=== PATIENT | male | born 1955 | race Caucasian/White ===

== ENCOUNTER 2019-11-30 17:48 | Emergency (ER) ==
[2019-11-30] MEDS ORDERED: Morphine 4 MG/ML VIAL ONE (19:13)
[2019-11-30] MEDS ORDERED: Dexamethasone 10 MG/ML VIAL ONE (19:13)
--- NOTE | 2019-11-30 19:40 | CT ---
CT LUMBAR SPINE WITHOUT CONTRAST: INDICATIONS: Severe back pain COMPARISON: None. TECHNIQUE: Multiple CT images were obtained of the lumbar spine without contrast. Axial, coronal, and sagittal r eformatted images were constructed from the raw data. FINDINGS: Visualized retroperitoneal and paravertebral soft tissues: There are severe vascular calcifications s een involving the visualized vasculature. There is an infrarenal abdominal aortic aneurysm measuring 3.7 cm. No pathologically enlarged lymph nodes are evident. Spinal alignment: There are bilateral pars defects at L5 with grade 1 anterolisthesis. Spinal instrumentation or postsurgical change: None At L5-S1, there is vacuum disc phenomenon within the L5-S1 with grade 1 anterolisthesis related to bi lateral pars defects. There is an acute superior endplate central compression deformity of L5 with approximately 15% loss of height. The disc degenerative disease in addition to the anterolisthesis in duces severe bilateral neural foraminal narrowing.. At L4-5, there is a broad-based bulge with facet hypertrophy inducing mild bilateral neural foraminal narrowing. At L3-4, there is mild broad-based bulge inducing mild bilateral neural foraminal narrowing. There is remote appearing inferior endplate compression fracture of L3. At L2-3, there is a mild broad-based bulge inducing mild bilateral neural foraminal narrowing. There is a acute appearing superior central endplate compression deformity involving L2 with approximately 50% loss of height. At L1-L2, there is a broad-based disc bulge inducing mild bilateral neural foraminal narrowing. At T12-L1, there is no appreciable central canal or neuroforaminal narrowing. IMPRESSION: 1. Acute-appearing endplate compression deformities of L5 and L2. Chronic inferior endplate central compression deformity of L3. 2. Severe lumbar spondylosis with multilevel neural foraminal narrowing. This is most pronounced at L 5-S1 where there is grade 1 anterolisthesis related to bilateral pars defects and advanced disc degenerative disease inducing severe bilateral neural foraminal narrowing. 3. Infrarenal abdominal aortic aneurysm measuring 3.7 cm.
== END 2019-11-30 20:42 | disposition home or self-care (01) ==
LOC: ERS 17:48
DX: S32.059A Unspecified fracture of fifth lumbar vertebra, initial encounter for closed fracture (principal); S32.029A Unspecified fracture of second lumbar vertebra, initial encounter for closed fracture; S32.039A Unspecified fracture of third lumbar vertebra, initial encounter for closed fracture; J43.9 Emphysema, unspecified; G62.9 Polyneuropathy, unspecified; F17.210 Nicotine dependence, cigarettes, uncomplicated; Z79.899 Other long term (current) drug therapy; Z79.891 Long term (current) use of opiate analgesic; W19.XXXA Unspecified fall, initial encounter
CPT/HCPCS: 72131; 96372; J1100; J2270

== ENCOUNTER 2020-11-04 20:13 | Inpatient (IN) | payer OTHER ==
[2020-11-04] MEDS ORDERED: Morphine 4 MG/ML VIAL ONE (21:31)
[2020-11-04 22:41] LABS: CKMB 22.3 ng/mL (0-6.6)
[2020-11-04] MEDS ORDERED: Acetaminophen 325 MG TAB PO PRN (23:24)
[2020-11-04] MEDS ORDERED: Ondansetron PF 4 MG/2 ML Vial IVP PRN (23:24)
[2020-11-04] MEDS ORDERED: hydrALAZINE 20 MG/ML VIAL SLOW IVP PRN (23:27)
[2020-11-04] MEDS ORDERED: Nitroglycerin 2% Ointment 1 INCH/1 GM Packet TOP SCH (23:45)
[2020-11-04] MEDS ORDERED: Pantoprazole 40 MG VIAL IVP SCH (23:45)
[2020-11-04] MEDS ORDERED: Sodium Chloride 0.9% (PF) 10 ML VIAL FS PRN (23:45)
[2020-11-05] MEDS: Morphine 2 MG/ML VIAL SLOW IVP PRN ×3 (00:51→07:36)
[2020-11-05 00:57] VITALS: BMI 29.2
[2020-11-05 04:01] LABS: #Eosinphils 0.1 thou/uL (0.0-0.7); #Lymphocytes 1.8 thou/uL (1.20-3.40); #Neutrophils 7.4 thou/uL (1.40-6.50); %Basophils 0.5 % (0.0-1.0); %Eosinophils 1.3 % (0.0-10.0); %Lymphocytes 17.4 % (21.0-51.0); %Monocytes 9.5 % (0.0-10.0); %Neutrophils 71.5 % (42.0-75.0); Hemoglobin 12.8 g/dL (14.0-18.0); Mean Corpuscular HGB CONC 33.5 g/dL (32.0-36.0); Mean Corpuscular Hemoglobin 32.1 pg (27.0-31.0); Mean Corpuscular Volume 95.6 fL (78.0-98.0); Mean Platelet Volume 8.2 fL (7.4-10.4); Platelet Count 164 thou/uL (130-400); RBC Distribution Width 13.2 % (11.5-14.5); White Blood Cell (WBC) Count 10.3 thou/uL (4.8-10.8)
[2020-11-05 04:22] LABS: Anion Gap 11 mmol/L (10-20); BUN (Urea Nitrogen) 12 mg/dL (8.4-25.7); Calc. Creatinine Clearance 140 mL/min (70-130); Calcium 8.9 mg/dL (7.8-10.44); Carbon Dioxide 23 mmol/L (23-31); Chloride 104 mmol/L (98-107); Glucose 102 mg/dL (80-115); Potassium 3.8 mmol/L (3.5-5.1); Sodium 134 mmol/L (136-145)
[2020-11-05 04:31] LABS: Troponin I 11.125 ng/mL (< 0.028)
[2020-11-05 04:42] LABS: SARS-CoV-2 NAA Rapid Test Not Detected (NotDetected)
[2020-11-05] MEDS: Nitroglycerin 2% Ointment 1 INCH/1 GM Packet TOP SCH ×3 (07:07→21:37)
[2020-11-05] MEDS ORDERED: Heparin 10,000 UNITS/ 10 ML VIAL ONE (07:41)
[2020-11-05] MEDS ORDERED: Nitroglycerin 100MG/250ML BOT 250 ML ONE (07:41)
[2020-11-05] MEDS ORDERED: Verapamil 5 MG/2 ML VIAL ONE (07:41)
[2020-11-05] MEDS ORDERED: Lidocaine 1% (PF) 30 ML VIAL ONE (07:42)
[2020-11-05] MEDS ORDERED: Atropine Sulfate 1 mg/10 ml Syringe ONE (08:28)
[2020-11-05 08:37] LABS: CKMB 53.4 ng/mL (0-6.6)
[2020-11-05] MEDS ORDERED: Clopidogrel Bisulfate 300 MG TAB ONE (08:40)
[2020-11-05] MEDS ORDERED: Midazolam HCl 2 mg/2 ml Vial ONE (08:52)
[2020-11-05] MEDS ORDERED: Fentanyl 100 MCG/2 ML VIAL ONE (08:52)
[2020-11-05] MEDS ORDERED: Clopidogrel Bisulfate 75 MG TAB PO SCH (09:00)
[2020-11-05] MEDS ORDERED: Enoxaparin Sodium 100 MG/ML SYRINGE SC SCH (09:00)
[2020-11-05] MEDS ORDERED: Iopamidol 370 76% 100 ML VIAL ONE (09:02)
[2020-11-05] MEDS ORDERED: Iopamidol 370 76% 50 ML VIAL FS ONE (09:02)
[2020-11-05] MEDS ORDERED: Ondansetron PF 4 MG/2 ML Vial ONE (09:47)
[2020-11-05] MEDS ORDERED: diphenhydrAMINE 50 MG/ML VIAL IVP PRN (14:34)
[2020-11-05] MEDS ORDERED: Montelukast Sodium 10 mg Tablet PO PRN (14:35)
[2020-11-05] MEDS ORDERED: Aspirin Chewable 81 MG TAB PO SCH ×3 (15:00→21:00)
[2020-11-05] MEDS: HYDROcodone/Acetaminophen 5/325 mg Tablet PO SCH ×2 (15:52→21:36)
[2020-11-05] MEDS: Mometasone 100 MCG/PUFF (1 INHALER) INH SCH (18:39)
[2020-11-05] MEDS ORDERED: Pantoprazole 40 MG VIAL IVP SCH (21:00)
[2020-11-05] MEDS: Atorvastatin Calcium 40 MG TAB PO SCH (21:35)
[2020-11-05] MEDS: Sucralfate 1 GM TAB PO SCH (21:38)
[2020-11-05] MEDS ORDERED: Aspirin 325 MG TAB PO SCH (23:59)
[2020-11-06 04:06] LABS: #Eosinphils 0.1 thou/uL (0.0-0.7); #Lymphocytes 2.3 thou/uL (1.20-3.40); #Neutrophils 4.2 thou/uL (1.40-6.50); %Basophils 0.3 % (0.0-1.0); %Eosinophils 1.6 % (0.0-10.0); %Lymphocytes 29.7 % (21.0-51.0); %Monocytes 12.9 % (0.0-10.0); %Neutrophils 55.5 % (42.0-75.0); Hemoglobin 12.2 g/dL (14.0-18.0); Mean Corpuscular HGB CONC 33.9 g/dL (32.0-36.0); Mean Corpuscular Hemoglobin 32.8 pg (27.0-31.0); Mean Corpuscular Volume 96.8 fL (78.0-98.0); Mean Platelet Volume 8.1 fL (7.4-10.4); Platelet Count 164 thou/uL (130-400); Red Blood Cell (RBC) Count 3.73 mill/uL (4.70-6.10); White Blood Cell (WBC) Count 7.6 thou/uL (4.8-10.8)
[2020-11-06 04:45] LABS: ALT (SGPT) 23 U/L (8-55); AST (SGOT) 86 U/L (5-34); Albumin 3.7 g/dL (3.4-4.8); Alkaline Phosphatase 59 U/L (40-110); Anion Gap 12 mmol/L (10-20); BUN (Urea Nitrogen) 10 mg/dL (8.4-25.7); Calc. Creatinine Clearance 121 mL/min (70-130); Carbon Dioxide 27 mmol/L (23-31); Cardiac Risk 5.8 (Less than 4.5); Chloride 103 mmol/L (98-107); Cholesterol 193 mg/dl (< 200 Desired); Globulin 2.7 g/dL (2.4-3.5); Glucose 91 mg/dL (80-115); HDL Cholesterol 33 mg/dL (>60 Neg Risk); LDL Cholesterol, Calculated 128 mg/dL; Potassium 4.5 mmol/L (3.5-5.1); Protein, Total 6.4 g/dL (5.8-8.1); Sodium 137 mmol/L (136-145); Triglycerides 161 mg/dL (Less than 150)
[2020-11-06] MEDS: Nitroglycerin 2% Ointment 1 INCH/1 GM Packet TOP SCH ×2 (06:45→14:32)
[2020-11-06] MEDS: Mometasone 100 MCG/PUFF (1 INHALER) INH SCH ×2 (07:44→19:05)
[2020-11-06] MEDS: Aspirin 81 mg Enteric Coated Tablet PO SCH (08:53)
[2020-11-06] MEDS: Sucralfate 1 GM TAB PO SCH ×2 (08:53→21:23)
[2020-11-06] MEDS: Clopidogrel Bisulfate 75 MG TAB PO SCH (08:54)
[2020-11-06] MEDS: HYDROcodone/Acetaminophen 5/325 mg Tablet PO SCH ×2 (08:54→11:38)
[2020-11-06] MEDS: Carvedilol 6.25 MG TAB PO SCH (21:23)
[2020-11-06] MEDS: Atorvastatin Calcium 40 MG TAB PO SCH (21:24)
[2020-11-06] MEDS: HYDROcodone/Acetaminophen 5/325 mg Tablet PO PRN (23:11)
[2020-11-07 04:40] LABS: #Eosinphils 0.2 thou/uL (0.0-0.7); #Neutrophils 5.5 thou/uL (1.40-6.50); %Basophils 0.4 % (0.0-1.0); %Eosinophils 2.5 % (0.0-10.0); %Lymphocytes 23.3 % (21.0-51.0); %Monocytes 10.9 % (0.0-10.0); %Neutrophils 62.8 % (42.0-75.0); Hemoglobin 13.3 g/dL (14.0-18.0); Mean Corpuscular HGB CONC 34.6 g/dL (32.0-36.0); Mean Corpuscular Hemoglobin 33.3 pg (27.0-31.0); Mean Corpuscular Volume 96.2 fL (78.0-98.0); Mean Platelet Volume 8.5 fL (7.4-10.4); Platelet Count 171 thou/uL (130-400); RBC Distribution Width 12.9 % (11.5-14.5); Red Blood Cell (RBC) Count 3.99 mill/uL (4.70-6.10); White Blood Cell (WBC) Count 8.8 thou/uL (4.8-10.8)
[2020-11-07 05:14] LABS: Anion Gap 12 mmol/L (10-20); BUN (Urea Nitrogen) 10 mg/dL (8.4-25.7); Calc. Creatinine Clearance 122 mL/min (70-130); Calcium 9.5 mg/dL (7.8-10.44); Carbon Dioxide 27 mmol/L (23-31); Chloride 102 mmol/L (98-107); Glucose 102 mg/dL (80-115); Potassium 4.3 mmol/L (3.5-5.1); Sodium 137 mmol/L (136-145)
[2020-11-07] MEDS: Mometasone 100 MCG/PUFF (1 INHALER) INH SCH ×2 (07:13→18:46)
[2020-11-07] MEDS: Clopidogrel Bisulfate 75 MG TAB PO SCH (09:03)
[2020-11-07] MEDS: Carvedilol 6.25 MG TAB PO SCH ×2 (09:04→20:37)
[2020-11-07] MEDS: Sucralfate 1 GM TAB PO SCH ×2 (09:04→20:37)
[2020-11-07] MEDS: Aspirin 81 mg Enteric Coated Tablet PO SCH (09:05)
[2020-11-07] MEDS: HYDROcodone/Acetaminophen 5/325 mg Tablet PO PRN ×3 (09:09→22:09)
[2020-11-07] MEDS: Atorvastatin Calcium 40 MG TAB PO SCH (20:37)
[2020-11-08] MEDS: Carvedilol 6.25 MG TAB PO SCH (09:10)
[2020-11-08] MEDS: Aspirin 81 mg Enteric Coated Tablet PO SCH (09:10)
[2020-11-08] MEDS: Sucralfate 1 GM TAB PO SCH (09:10)
[2020-11-08] MEDS: Clopidogrel Bisulfate 75 MG TAB PO SCH (09:10)
[2020-11-08] MEDS: HYDROcodone/Acetaminophen 5/325 mg Tablet PO PRN (09:13)
[2020-11-08] MEDS: Mometasone 100 MCG/PUFF (1 INHALER) INH SCH (09:42)
[2020-11-08 13:14] VITALS: BP 117/76; TEMP 97.8
== END 2020-11-08 13:00 | disposition home or self-care (01) | DRG 249 ==
LOC: ERS 20:13 → 2NO 22:40 → CCU 11-05 10:20 → 2NO 11-06 18:21
PROVIDERS: ADMIT Hospitalist; ATTEND Internal Medicine
PROC: 02703FZ Dilation of Coronary Artery, One Artery with Three Intraluminal Devices, Percutaneous Approach (ICD-10-PCS; principal; 2020-11-05)
PROC: B2111ZZ Fluoroscopy of Multiple Coronary Arteries using Low Osmolar Contrast (ICD-10-PCS; 2020-11-05)
DX: I21.19 ST elevation (STEMI) myocardial infarction involving other coronary artery of inferior wall (principal); I50.32 Chronic diastolic (congestive) heart failure; I13.0 Hypertensive heart and chronic kidney disease with heart failure and stage 1 through stage 4 chronic kidney disease, or unspecified chronic kidney disease; E87.1 Hypo-osmolality and hyponatremia; Z20.822 Contact with and (suspected) exposure to COVID-19; F17.210 Nicotine dependence, cigarettes, uncomplicated; I25.10 Atherosclerotic heart disease of native coronary artery without angina pectoris; M54.5 Low back pain; E78.5 Hyperlipidemia, unspecified; N18.30 Chronic kidney disease, stage 3 unspecified; D53.9 Nutritional anemia, unspecified; I08.1 Rheumatic disorders of both mitral and tricuspid valves; J43.9 Emphysema, unspecified; G62.9 Polyneuropathy, unspecified; K21.9 Gastro-esophageal reflux disease without esophagitis; G89.29 Other chronic pain; Z88.5 Allergy status to narcotic agent; Z88.0 Allergy status to penicillin; Z79.899 Other long term (current) drug therapy
CPT/HCPCS: 36415; 76942; 80048; 80053; 80061; 82553; 84443; 84484; 85025; 85347; 86850; 86900; 86901; 92928; 93005; 93010; 93306; 93454; 93798; 94640; 94760; 96374; 97139; 99152; 99153; C1769; C1876; C9113; J0461; J1644; J2001; J2250; J2270; J2405; J3010; J7620; Q9967; U0002; U0005

== ENCOUNTER 2020-12-09 12:42 | Observation (INO) | payer OTHER ==
[~2020-12-09 12:42] MED LIST: Iopamidol-370 76% 500 ML 1 ML ONE
[2020-12-09] MEDS ORDERED: Morphine 4 MG/ML VIAL ONE ×3 (12:58→15:42)
[2020-12-09] MEDS ORDERED: Ondansetron PF 4 MG/2 ML Vial ONE (12:58)
[2020-12-09 13:09] LABS: #Eosinphils 0.3 thou/uL (0.0-0.7); #Lymphocytes 1.8 thou/uL (1.20-3.40); #Monocytes 0.4 thou/uL (0.11-0.59); #Neutrophils 3.7 thou/uL (1.40-6.50); %Basophils 0.2 % (0.0-1.0); %Eosinophils 5.2 % (0.0-10.0); %Lymphocytes 27.9 % (21.0-51.0); %Monocytes 6.9 % (0.0-10.0); %Neutrophils 59.7 % (42.0-75.0); Hemoglobin 13.3 g/dL (14.0-18.0); Mean Corpuscular HGB CONC 35.3 g/dL (32.0-36.0); Mean Corpuscular Hemoglobin 34.3 pg (27.0-31.0); Mean Corpuscular Volume 97.2 fL (78.0-98.0); Mean Platelet Volume 7.8 fL (7.4-10.4); Platelet Count 175 thou/uL (130-400); RBC Distribution Width 13.4 % (11.5-14.5); Red Blood Cell (RBC) Count 3.87 mill/uL (4.70-6.10); White Blood Cell (WBC) Count 6.3 thou/uL (4.8-10.8)
[2020-12-09 13:31] LABS: ALT (SGPT) 27 U/L (8-55); AST (SGOT) 45 U/L (5-34); Albumin 4.4 g/dL (3.4-4.8); Alkaline Phosphatase 64 U/L (40-110); Anion Gap 14 mmol/L (10-20); BUN (Urea Nitrogen) 10 mg/dL (8.4-25.7); Bilirubin, Total 0.7 mg/dL (0.2-1.2); Calc. Creatinine Clearance 0 mL/min (70-130); Calcium 9.2 mg/dL (7.8-10.44); Carbon Dioxide 18 mmol/L (23-31); Chloride 105 mmol/L (98-107); Globulin 2.6 g/dL (2.4-3.5); Glucose 144 mg/dL (80-115); Potassium 4.2 mmol/L (3.5-5.1); Sodium 133 mmol/L (136-145)
[2020-12-09] MEDS ORDERED: Ondansetron PF 4 MG/2 ML Vial IVP PRN (14:09)
[2020-12-09] MEDS ORDERED: Ondansetron ODT 4 MG TAB PO PRN (14:09)
[2020-12-09] MEDS ORDERED: Dextrose 50% Abboject 50 ML SYRINGE SLOW IVP PRN (14:09)
[2020-12-09] MEDS ORDERED: Dextrose 5% in Water 1,000 ML IV PRN (14:09)
[2020-12-09] MEDS ORDERED: hydrALAZINE 20 MG/ML VIAL SLOW IVP PRN (14:09)
[2020-12-09] MEDS ORDERED: Rib Fracture Protocol PO SCH (14:15)
[2020-12-09] MEDS ORDERED: Cyclobenzaprine 10 MG TAB PO PRN (14:24)
[2020-12-09] MEDS ORDERED: HYDROcodone/Acetaminophen 10/325 mg Tablet ONE (14:30)
[2020-12-09] MEDS ORDERED: Gabapentin 300 MG CAP PO SCH (15:00)
[2020-12-09] MEDS ORDERED: Ketorolac Tromethamine 30 MG/ML VIAL ONE (15:42)
[2020-12-09] MEDS ORDERED: Ibuprofen 200 MG TAB PO PRN (16:00)
[2020-12-09 16:49] VITALS: BMI 29.5
[2020-12-09] MEDS: traMADol HCl 50 MG TAB PO SCH ×2 (17:50→18:42)
[2020-12-09] MEDS: Acetaminophen 500 MG TAB PO SCH ×3 (17:50→22:58)
[2020-12-09] MEDS ORDERED: Ibuprofen 800 MG TAB PO SCH (18:00)
[2020-12-09] MEDS ORDERED: Albuterol 200 PUFF (6.7GM INHALER) INH PRN (20:29)
[2020-12-09] MEDS ORDERED: Atorvastatin Calcium 40 MG TAB PO SCH (21:00)
[2020-12-09] MEDS ORDERED: Famotidine 20 MG TAB PO SCH (21:00)
[2020-12-09] MEDS: Senokot S 8.6-50 MG TAB PO SCH (21:49)
[2020-12-09] MEDS: Carvedilol 3.125 MG TAB PO SCH (21:49)
[2020-12-09] MEDS: Sucralfate 1 GM TAB PO SCH (21:49)
[2020-12-10] MEDS: traMADol HCl 50 MG TAB PO SCH ×3 (00:13→07:08)
[2020-12-10] MEDS ORDERED: Mometasone 100 MCG/PUFF (1 INHALER) INH SCH (06:30)
[2020-12-10] MEDS: Acetaminophen 500 MG TAB PO SCH ×2 (06:42→07:10)
[2020-12-10 07:42] LABS: SARS-CoV-2 PCR by NAA Not Detected (NotDetected)
[2020-12-10 08:23] VITALS: BP 147/94; TEMP 98
[2020-12-10] MEDS ORDERED: Aspirin 81 mg Enteric Coated Tablet PO SCH (09:00)
[2020-12-10] MEDS ORDERED: Docusate 100 MG CAP PO SCH (09:00)
[2020-12-10] MEDS ORDERED: Polyethylene Glycol 3350 17 GM Packet PO SCH (09:00)
[2020-12-10] MEDS ORDERED: Clopidogrel Bisulfate 75 MG TAB PO SCH (09:00)
[2020-12-10] MEDS: Senokot S 8.6-50 MG TAB PO SCH (09:25)
[2020-12-10] MEDS: Carvedilol 3.125 MG TAB PO SCH (09:26)
[2020-12-10] MEDS: Sucralfate 1 GM TAB PO SCH (09:27)
== END 2020-12-10 10:36 | disposition home or self-care (01) ==
LOC: ERS 12:42 → SURG A 14:13
PROVIDERS: ADMIT Surgery; ATTEND Surgery
DX: S27.0XXA Traumatic pneumothorax, initial encounter (principal); S22.31XA Fracture of one rib, right side, initial encounter for closed fracture; G89.11 Acute pain due to trauma; I10 Essential (primary) hypertension; I25.10 Atherosclerotic heart disease of native coronary artery without angina pectoris; G89.29 Other chronic pain; M54.9 Dorsalgia, unspecified; Z79.51 Long term (current) use of inhaled steroids; Z79.899 Other long term (current) drug therapy; Z88.0 Allergy status to penicillin; Z88.5 Allergy status to narcotic agent; Z88.8 Allergy status to other drugs, medicaments and biological substances
CPT/HCPCS: 71045; 71260; 74177; 80053; 85025; 86850; 86900; 86901; 93005; 94640; 96374; 96375; 96376; G0378; G0390; J1885; J2270; J2405; J7620; Q9967; U0003; U0005

== ENCOUNTER 2020-12-24 12:20 | Observation (INO) | payer OTHER ==
[2020-12-24 14:51] VITALS: BMI 27.0
[2020-12-24] MEDS ORDERED: Nitroglycerin 0.4 MG TAB (25 Tab Bottle) SL PRN (15:52)
[2020-12-24] MEDS ORDERED: Docusate 100 MG CAP PO PRN (15:57)
[2020-12-24] MEDS ORDERED: Ondansetron ODT 8 MG TAB PO PRN (16:13)
[2020-12-24] MEDS ORDERED: Methocarbamol 500 MG TAB PO PRN (16:13)
[2020-12-24 17:10] LABS: Troponin I Less than 0.010 ng/mL (< 0.028)
[2020-12-24] MEDS: Sucralfate 1 GM TAB PO SCH ×2 (17:48→21:12)
[2020-12-24] MEDS: Lidocaine 5% Patch TD SCH (17:48)
[2020-12-24] MEDS: traMADol HCl 50 MG TAB PO SCH (17:49)
[2020-12-24] MEDS ORDERED: HYDROcodone/Acetaminophen 5/325 mg Tablet PO PRN (18:21)
[2020-12-24] MEDS: Mometasone 100 MCG/PUFF (1 INHALER) INH SCH (19:49)
[2020-12-24 19:52] LABS: Troponin I 0.013 ng/mL (< 0.028)
[2020-12-24] MEDS ORDERED: Sucralfate 1 GM TAB PO SCH (21:00)
[2020-12-24] MEDS ORDERED: Atorvastatin Calcium 40 MG TAB PO SCH (21:00)
[2020-12-24] MEDS: Carvedilol 3.125 MG TAB PO SCH (21:10)
[2020-12-24] MEDS: Polyethylene Glycol 3350 17 GM Packet PO SCH (21:13)
[2020-12-24 22:07] LABS: SARS-CoV-2 PCR by NAA Not Detected (NotDetected)
[2020-12-25] MEDS: Nitroglycerin 2% Ointment 1 INCH/1 GM Packet TOP SCH ×3 (00:06→12:40)
[2020-12-25] MEDS: traMADol HCl 50 MG TAB PO SCH ×5 (00:15→17:59)
[2020-12-25] MEDS ORDERED: Transdermal Patch Removal TOP SCH (05:00)
[2020-12-25] MEDS: Morphine 2 MG/ML VIAL SLOW IVP PRN ×2 (05:08→14:26)
[2020-12-25 05:17] LABS: #Eosinphils 0.2 thou/uL (0.0-0.7); #Lymphocytes 2.2 thou/uL (1.20-3.40); #Monocytes 0.5 thou/uL (0.11-0.59); #Neutrophils 2.2 thou/uL (1.40-6.50); %Basophils 0.5 % (0.0-1.0); %Eosinophils 4.6 % (0.0-10.0); %Lymphocytes 42.9 % (21.0-51.0); %Monocytes 9.7 % (0.0-10.0); %Neutrophils 42.2 % (42.0-75.0); Hemoglobin 12.8 g/dL (14.0-18.0); Mean Corpuscular HGB CONC 33.2 g/dL (32.0-36.0); Mean Corpuscular Hemoglobin 32.9 pg (27.0-31.0); Mean Corpuscular Volume 99.2 fL (78.0-98.0); Mean Platelet Volume 7.2 fL (7.4-10.4); Platelet Count 221 thou/uL (130-400); RBC Distribution Width 13.1 % (11.5-14.5); Red Blood Cell (RBC) Count 3.89 mill/uL (4.70-6.10); White Blood Cell (WBC) Count 5.2 thou/uL (4.8-10.8)
[2020-12-25 05:42] LABS: Anion Gap 12 mmol/L (10-20); BUN (Urea Nitrogen) 16 mg/dL (8.4-25.7); Calc. Creatinine Clearance 112 mL/min (70-130); Calcium 9.2 mg/dL (7.8-10.44); Carbon Dioxide 25 mmol/L (23-31); Cardiac Risk 3.7 (Less than 4.5); Chloride 106 mmol/L (98-107); Cholesterol 133 mg/dl (< 200 Desired); Glucose 97 mg/dL (80-115); HDL Cholesterol 36 mg/dL (>60 Neg Risk); LDL Cholesterol, Calculated 65 mg/dL; Potassium 4.1 mmol/L (3.5-5.1); Sodium 139 mmol/L (136-145); Triglycerides 160 mg/dL (Less than 150)
[2020-12-25] MEDS: Mometasone 100 MCG/PUFF (1 INHALER) INH SCH ×2 (06:40→18:08)
[2020-12-25] MEDS ORDERED: Clopidogrel Bisulfate 75 MG TAB PO SCH (09:00)
[2020-12-25] MEDS ORDERED: Aspirin 81 mg Enteric Coated Tablet PO SCH (09:00)
[2020-12-25] MEDS ORDERED: Non-Formulary Item 1 EACH (Fluticasone/Umeclidin/Vilanter [Trelegy Ellipta 100-62.5-25] 1 INH SCH (09:00)
[2020-12-25] MEDS ORDERED: Enoxaparin Sodium 40 MG/0.4 ML SYRINGE SC SCH (09:00)
[2020-12-25] MEDS ORDERED: predniSONE 20 MG TAB PO SCH (10:30)
[2020-12-25] MEDS: Sucralfate 1 GM TAB PO SCH ×4 (12:14→18:01)
[2020-12-25] MEDS: Carvedilol 3.125 MG TAB PO SCH ×2 (12:34→18:00)
[2020-12-25] MEDS: Polyethylene Glycol 3350 17 GM Packet PO SCH ×2 (12:39→18:01)
[2020-12-25 13:21] VITALS: BP 126/88; TEMP 98
[2020-12-25] MEDS: Lidocaine 5% Patch TD SCH (14:36)
[2020-12-25] MEDS ORDERED: Lidocaine 2% Viscous Solution 10 ML, Aluminum & Magnesium Hydroxide 30 ML SSW SCH (17:00)
[2020-12-25] MEDS ORDERED: Simvastatin 10 MG TAB PO SCH (21:00)
== END 2020-12-25 18:36 | disposition home or self-care (01) ==
LOC: 2SW 14:35
PROVIDERS: ADMIT Family Medicine; ATTEND Internal Medicine
DX: R07.2 Precordial pain (principal); K22.2 Esophageal obstruction; I25.10 Atherosclerotic heart disease of native coronary artery without angina pectoris; G62.9 Polyneuropathy, unspecified; G89.29 Other chronic pain; M54.5 Low back pain; F17.210 Nicotine dependence, cigarettes, uncomplicated; J44.9 Chronic obstructive pulmonary disease, unspecified; I25.2 Old myocardial infarction; I11.0 Hypertensive heart disease with heart failure; I50.20 Unspecified systolic (congestive) heart failure; I08.1 Rheumatic disorders of both mitral and tricuspid valves; K59.00 Constipation, unspecified; E78.5 Hyperlipidemia, unspecified; D64.9 Anemia, unspecified; K21.9 Gastro-esophageal reflux disease without esophagitis; R13.19 Other dysphagia; Z79.02 Long term (current) use of antithrombotics/antiplatelets; Z79.82 Long term (current) use of aspirin; Z79.899 Other long term (current) drug therapy; Z88.0 Allergy status to penicillin; Z88.5 Allergy status to narcotic agent; Z88.8 Allergy status to other drugs, medicaments and biological substances; Z95.5 Presence of coronary angioplasty implant and graft; Z98.890 Other specified postprocedural states; Z20.822 Contact with and (suspected) exposure to COVID-19
CPT/HCPCS: 36415; 74220; 80048; 80061; 85025; 93005; 93010; 94640; 96372; 96374; 96375; G0378; J1650; J2270; J7512; J7620; U0003; U0005

== ENCOUNTER 2021-05-16 18:40 | Emergency (ER) | payer OTHER ==
[2021-05-16] MEDS ORDERED: Boostrix 0.5 ML (Tdap) VIAL ONE (18:49)
[2021-05-16] MEDS ORDERED: ceFAZolin 2 GM/DEX 5% 100 ML BAG ONE (18:49)
[2021-05-16] MEDS ORDERED: Sodium Bicarb 50 MEQ/50 ML Abboject 8.4% SYRINGE ONE (18:52)
[2021-05-16] MEDS ORDERED: EPINEPHrine 1 MG/10 ML Abboject SYRINGE ONE (18:52)
[2021-05-16] MEDS ORDERED: Calcium Chloride 1 GM/10 ML Abboject SYRINGE ONE (18:52)
[2021-05-16] MEDS ORDERED: Ketamine 50 MG/ML (10ML VIAL) ONE (19:12)
[2021-05-16] MEDS ORDERED: Vecuronium 10 MG VIAL ONE (19:13)
[2021-05-16 19:21] LABS: #Eosinphils 0.2 thou/uL (0.0-0.7); #Lymphocytes 3.5 thou/uL (1.20-3.40); #Monocytes 0.4 thou/uL (0.11-0.59); #Neutrophils 9.2 thou/uL (1.40-6.50); %Basophils 0.3 % (0.0-1.0); %Eosinophils 1.9 % (0.0-10.0); %Lymphocytes 26.2 % (21.0-51.0); %Monocytes 2.9 % (0.0-10.0); %Neutrophils 68.7 % (42.0-75.0); Hemoglobin 8.9 g/dL (14.0-18.0); Mean Corpuscular HGB CONC 32.5 g/dL (32.0-36.0); Mean Corpuscular Hemoglobin 32.6 pg (27.0-31.0); Mean Platelet Volume 7.6 fL (7.4-10.4); Platelet Count 78 thou/uL (130-400); RBC Distribution Width 14.4 % (11.5-14.5); Red Blood Cell (RBC) Count 2.72 mill/uL (4.70-6.10); White Blood Cell (WBC) Count 13.4 thou/uL (4.8-10.8)
[2021-05-16 19:21] LABS: INR-International Normal Ratio 1.7; Prothrombin Time 20.4 sec (12.0-14.7)
[2021-05-16 19:22] LABS: PTT 84.1 sec (22.9-36.1)
[2021-05-16 19:30] LABS: Bilirubin Negative (Negative); Blood, Urine 2+ (Negative); Clarity Turbid (Clear); Glucose, Urine (Dipstick) Normal (Negative); Ketone, Urine Negative (Negative); Leukocyte Negative Leu/uL (Negative); Nitrite Negative (Negative); Protein, Urine (Dipstick) 30 mg/dL (Neg-Trace); RBC/HPF 21-50 HPF (0-3); Renal Epithelial 0-3 HPF (None Seen); Specific Gravity, Urine 1.011 (1.002-1.036); Urobilinogen Normal mg/dL (Less than 2); pH, Urine 6.5 (5.0-9.0)
[2021-05-16] MEDS ORDERED: Norepinephrine 8 MG/0.9% NS 250 ML ONE (19:38)
[2021-05-16 19:39] LABS: Bacteria/HPF 3+ HPF (None Seen); Sperm/HPF 2+ HPF (None Seen)
[2021-05-16 19:40] LABS: ALT (SGPT) 36 U/L (8-55); AST (SGOT) 45 U/L (5-34); Albumin 2.2 g/dL (3.4-4.8); Alkaline Phosphatase 48 U/L (40-110); Anion Gap 22 mmol/L (10-20); BUN (Urea Nitrogen) 10 mg/dL (8.4-25.7); Bilirubin, Total 0.2 mg/dL (0.2-1.2); Calc. Creatinine Clearance 0 mL/min (70-130); Calcium 6.3 mg/dL (7.8-10.44); Chloride 110 mmol/L (98-107); Globulin 1.4 g/dL (2.4-3.5); Glucose 445 mg/dL (80-115); Potassium 3.1 mmol/L (3.5-5.1); Protein, Total 3.6 g/dL (5.8-8.1); Sodium 138 mmol/L (136-145)
[2021-05-16 19:42] LABS: MDiff Complete? YES; Platelet Morphology Comment Appears Decreased; Polychromasia SLIGHT = 2-3 cells (100X) (0-2/hpf)
[2021-05-16 19:45] LABS: Carbon Dioxide 9 mmol/L (23-31)
[2021-05-16 19:54] LABS: Actual Bicarbonate (HCO3a) 23.2 mEq/L (22-28); Analyzer IN Cardio ER; Base Excess (BEa) -3.4 mEq/L (-2.0 to +3.0); Calcium, Ionized (arterial) 0.99 mmol/L (1.12-1.30); Carboxyhemoglobin (COHb) 0.4 gm% (0.0-3.0); Hemoglobin (Hb) 8.4 g/dL (14.0-18.0); O2 Tension (PaO2), arterial 77.6 mmHg (> 80.0); Potassium - ABG Lab 5.09 mmol/L (3.70-5.30); pH, Arterial 7.28 (7.35-7.45)
[2021-05-16] MEDS ORDERED: HumaLOG 300 UNITS/3 ML VIAL SC PRN (20:06)
[2021-05-16] MEDS ORDERED: Ondansetron PF 4 MG/2 ML Vial IVP PRN (20:06)
[2021-05-16] MEDS ORDERED: hydrALAZINE 20 MG/ML VIAL SLOW IVP PRN (20:06)
[2021-05-16] MEDS ORDERED: Dextrose 5% in Water 1,000 ML IV PRN (20:06)
[2021-05-16] MEDS ORDERED: Dextrose 50% Abboject 50 ML SYRINGE SLOW IVP PRN (20:06)
[2021-05-16] MEDS ORDERED: Morphine 4 MG/ML VIAL SLOW IVP PRN (20:10)
[2021-05-16] MEDS ORDERED: Norepinephrine 16 MG in Dextrose 5% in Water 234 ML IVPB SCH (20:15)
[2021-05-16] MEDS ORDERED: Hydrocortisone Sod Succ/PF 100 mg/2 ml Vial IVP SCH ×2 (20:15→22:00)
[2021-05-16] MEDS ORDERED: Sodium Chloride 0.9% 1,000 ML IV SCH (20:15)
[2021-05-16] MEDS ORDERED: Fentanyl CADD 100 ML IV PRN (20:16)
[2021-05-16 20:40] LABS: Puncture Site ALINE
[2021-05-16 20:42] LABS: CKMB 14.2 ng/mL (0-6.6)
[2021-05-16] MEDS ORDERED: Famotidine/PF 20 mg/2ml Vial SLOW IVP SCH (21:00)
[2021-05-16 21:43] LABS: SARS-CoV-2 NAA Rapid Test Not Detected (NotDetected)
== END 2021-05-17 20:53 | disposition expired ==
LOC: ERS 18:40
DX: I46.9 Cardiac arrest, cause unspecified (principal); I62.9 Nontraumatic intracranial hemorrhage, unspecified; S12.300A Unspecified displaced fracture of fourth cervical vertebra, initial encounter for closed fracture; Z20.822 Contact with and (suspected) exposure to COVID-19; I25.10 Atherosclerotic heart disease of native coronary artery without angina pectoris; F17.210 Nicotine dependence, cigarettes, uncomplicated; V48.5XXA Car driver injured in noncollision transport accident in traffic accident, initial encounter
CPT/HCPCS: 36415; 36430; 36556; 70450; 71045; 71260; 72125; 72170; 74177; 80053; 81003; 81015; 82533; 82553; 82805; 83605; 84484; 85025; 85610; 85730; 86850; 86900; 86901; 90471; 90715; 92950; 93005; 94002; 96365; 96367; 96375; 96376; 99292; G0390; J0171; P9016; P9035; P9048; P9059; Q9967; U0002